=== PATIENT | female | born 1960 | race African-American/Black ===

== ENCOUNTER 2019-07-29 09:40 | Emergency (ER) | payer OTHER ==
[2019-07-29 09:46] VITALS: BP 165/77; PULSE 104; TEMP 98; BMI 38.3
--- NOTE | 2019-07-29 10:35 | PDOC ---
History of Present Illness - General Chief Complaint: Pain Stated Complaint: RT KNEE INJURY\\SWELLING Time Seen by Provider: 07/29/19 09:52 - History of Present Illness Initial Comments: 07/29/19 10:30 CHIEF COMPLAINT: knee pain HISTORY OF PRESENT ILLNESS: 59 yo F with hx of arthritis presents to ED with R knee pain x 1 month. Patient reports that she feels like the knee is swollen and she has pain with weight bearing, "probably from my arthritis but it feels like it's getting worse." She reports that she saw her PCP a few days ago and was told she probably hurt a ligament. She has an appointment with an orthopedist this saturday but felt the pain was unbearable today so she came to the ER. No recent travel or sick contacts. PAST MEDICAL HISTORY: Denies past medical history FAMILY HISTORY: Denies SOCIAL HISTORY: Denies tobacco, alcohol, illicit drug use. SURGICAL HISTORY: Denies ALLERGIES: No known drug allergies REVIEW OF SYSTEMS General/Constitutional: Denies fever or chills. Denies weakness, weight change. HEENT: Denies change in vision. Denies ear pain or discharge. Denies sore throat. Cardiovascular: Denies chest pain or shortness of breath. Respiratory: Denies cough, wheezing, or hemoptysis. Gastrointestinal: Denies nausea, vomiting, diarrhea or constipation. Denies rectal bleeding. Genitourinary: Denies dysuria, frequency, or change in urination. Musculoskeletal: R knee pain x 1 month. Skin and breasts: Denies rash or easy bruising. Neurologic: Denies headache, vertigo, loss of consciousness, or loss of sensation. Psychiatric: Denies depression or anxiety. PHYSICAL EXAM General Appearance: Well-appearing, appropriately dressed. No apparent distress , no intoxication. HEENT: EOMI, PERRLA, normal ENT inspection, normal voice, TMs normal, pharynx normal. No conjunctival pallor. No photophobia, scleral icterus. Neck: Supple. Trachea midline. No tenderness, rigidity, carotid bruit, stridor , lymphadenopathy, or thyromegaly. Respiratory/Chest: Lungs CTAB. No shortness of breath, chest tenderness, respiratory distress, accessory muscle use. No crackles, rales, rhonchi, stridor , wheezing, dullness Cardiovascular: RRR. S1, S2. No JVD, murmur, bradycardia, tachycardia. Vascular Pulses: Dorsalis-Pedis (R): 2+, Dorsalis-Pedis (L): 2+ Gastrointestinal/Abdominal: Normal bowel sounds. Abdomen soft, non-distended. No tenderness or rebound tenderness. No organomegaly, pulsatile mass, guarding , hernia, hepatomegaly, splenomegaly. Lymphatic: No adenopathy, tenderness. Musculoskeletal/Extremities: Tenderness to superior medial aspect of R knee with mild swelling, full ROM to knee, patient ambulatory. FROM of all extremities, normal capillary refill. Pelvis Stable. No CVA tenderness. No tenderness to extremities, pedal edema, swelling, erythema or deformity. Integumentary: Appropriate color, dry, warm. 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 Fully oriented, alert. Appropriate mood/affect. Motor strength 5/5. No appreciable EOM palsy, facial droop or sensory deficit. Past History - Past Medical History Allergies/Adverse Reactions: Allergies Allergy/AdvReac Type Severity Reaction Status Date / Time No Known Allergies Allergy Verified 07/29/19 09:46 Home Medications: Ambulatory Orders Amlodipine Besylate [Norvasc -] 10 mg PO DAILY #7 tablet 03/12/13 Hydrochlorothiazide [Hctz -] 25 mg PO DAILY 07/13/13 Ferrous Sulfate [Feosol] 325 mg PO DAILY #0 ud 07/22/13 Ibuprofen [Motrin -] 600 mg PO Q6H PRN #0 tablet 07/22/13 Oxycodone HCl/Acetaminophen [Percocet 5-325 mg Tablet -] 1 combo PO Q6H PRN #10 tablet 01/31/14 predniSONE [Deltasone -] 20 mg PO DAILY #5 tablet 07/29/19 Anemia: Yes Cancer: Yes (sarcoidosis) COPD: No HTN: Yes Other medical history: Arthritis - Psycho Social/Smoking Cessation Hx Smoking Status: No Smoking History: Never smoked Have you smoked in the past 12 months: No Number of Cigarettes Smoked Daily: 0 Information on smoking cessation initiated: No Hx Alcohol Use: No Drug/Substance Use Hx: No Substance Use Type: None Hx Substance Use Treatment: No *Physical Exam - Vital Signs Last Vital Signs Temp Pulse Resp BP Pulse Ox 98 F 104 H 19 165/77 97 07/29/19 09:44 07/29/19 09:44 07/29/19 09:44 07/29/19 09:44 07/29/19 09:44 ED Treatment Course - RADIOLOGY Radiology Studies Ordered: Category Date Time Status KNEE 3 POS-RIGHT [RAD] Stat Radiology 07/29/19 09:53 Completed Medical Decision Making - Medical Decision Making 07/29/19 10:34 59 yo F presents to ED with R knee pain x 1 month. Patient states she cannot take NSAIDS per her doctor. -prednisone 20 mg daily Advised patient to take medication as prescribed and follow up with orthopedist as scheduled. Advised patient of signs and symptoms for return to ED. Patient verbalized understanding and agrees to plan. Discharge - Discharge Information Problems reviewed: Yes Clinical Impression/Diagnosis: Knee effusion, right Condition: Stable Disposition: HOME - Admission No - Additional Discharge Information Prescriptions: predniSONE [Deltasone -] 20 mg PO DAILY #5 tablet - Follow up/Referral Referrals: Meagan Armando [Primary Care Provider] - - Patient Discharge Instructions Patient Printed Discharge Instructions: DI for Knee Effusion Additional Instructions: Please take medication as prescribed. Follow up with your orthopedist as scheduled for further management of your knee pain. If you develop any new or worsening symptoms, please return to the ER. - Post Discharge Activity
== END 2019-07-29 10:49 | disposition home or self-care (01) ==
LOC: JERFT 09:40
DX: M25.461 Effusion, right knee (principal); I10 Essential (primary) hypertension; M19.90 Unspecified osteoarthritis, unspecified site; D86.9 Sarcoidosis, unspecified; D64.9 Anemia, unspecified
CPT/HCPCS: 73562-TC-RT-FY; 99282-25